=== PATIENT | female | born 2000 | race Caucasian/White ===

== ENCOUNTER 2021-08-07 21:43 | Outpatient (CLI) | payer BC, OTHER | END 2021-08-07 22:45 | disposition home or self-care (01) | LOC: GENOP 21:43 | DX: O99.891 Other specified diseases and conditions complicating pregnancy (principal); R10.9 Unspecified abdominal pain; O99.612 Diseases of the digestive system complicating pregnancy, second trimester; K21.9 Gastro-esophageal reflux disease without esophagitis; Z3A.26 26 weeks gestation of pregnancy | CPT/HCPCS: 81001; G0463 ==

== ENCOUNTER 2021-10-10 20:43 | Outpatient (CLI) | payer BC, OTHER | END 2021-10-10 23:41 | disposition home or self-care (01) | LOC: GENOP 20:43 | DX: O99.891 Other specified diseases and conditions complicating pregnancy (principal); R52 Pain, unspecified; Z3A.35 35 weeks gestation of pregnancy | CPT/HCPCS: 81001; 96360 ==

== ENCOUNTER 2021-10-11 11:50 | Outpatient (CLI) | payer BC, OTHER | END 2021-10-11 12:29 | disposition home or self-care (01) | LOC: GENOP 11:50 | DX: O47.03 False labor before 37 completed weeks of gestation, third trimester (principal); Z3A.36 36 weeks gestation of pregnancy | CPT/HCPCS: 81001; G0463 ==

== ENCOUNTER 2021-10-22 02:37 | Inpatient (IN) | payer BC, OTHER ==
[~2021-10-22] VITALS: Ht 149.9 cm; Wt 86.2 kg
[2021-10-22] MEDS ORDERED: PRILOSEC OTC20 MG PO (03:48)
[2021-10-22] MEDS ORDERED: PRENATAL VITAM1 EAC3 PO (03:49)
[2021-10-22 05:07] LABS: HEMOGLOBIN 11.7 gm/dl (12.3-15.3); RED BLOOD COUNT 3.72 M/UL (4.00-5.10); WHITE BLOOD COUNT 9.3 K/UL (4.5-11.0)
[2021-10-22] MEDS ORDERED: COLACE100 MG PO (19:46)
[2021-10-22] MEDS ORDERED: IBUPROFEN600 MG PO (19:46)
[2021-10-23 06:48] LABS: HEMOGLOBIN 11.1 gm/dl (12.3-15.3)
[2021-10-24] MEDS ORDERED: HYDROCODON-ACE1 EAC4 PO (09:30)
[2021-10-24] MEDS ORDERED: IBUPROFEN800 MG PO (09:30)
[2021-10-24] MEDS ORDERED: COLACE 100MG C100 MG PO (09:30)
== END 2021-10-24 16:37 | disposition home or self-care (01) | DRG 807 ==
LOC: GENOP 02:37 → OB 03:47
PROVIDERS: Obstetrics & Gynecology; ADMIT Obstetrics & Gynecology
PROC: 10E0XZZ Delivery of Products of Conception, External Approach (ICD-10-PCS; principal; 2021-10-22)
PROC: 0KQM0ZZ Repair Perineum Muscle, Open Approach (ICD-10-PCS; 2021-10-22)
PROC: 3E033VJ Introduction of Other Hormone into Peripheral Vein, Percutaneous Approach (ICD-10-PCS; 2021-10-22)
PROC: 4A1H7CZ Monitoring of Products of Conception, Cardiac Rate, Via Natural or Artificial Opening (ICD-10-PCS; 2021-10-22)
PROC: 10H073Z Insertion of Monitoring Electrode into Products of Conception, Via Natural or Artificial Opening (ICD-10-PCS; 2021-10-22)
PROC: 0UH97HZ Insertion of Contraceptive Device into Uterus, Via Natural or Artificial Opening (ICD-10-PCS; 2021-10-22)
PROC: 3E0234Z Introduction of Serum, Toxoid and Vaccine into Muscle, Percutaneous Approach (ICD-10-PCS; 2021-10-22)
DX: O36.63X0 Maternal care for excessive fetal growth, third trimester, not applicable or unspecified (principal); Z37.0 Single live birth; O42.02 Full-term premature rupture of membranes, onset of labor within 24 hours of rupture; Z3A.37 37 weeks gestation of pregnancy; Z83.3 Family history of diabetes mellitus; Z82.49 Family history of ischemic heart disease and other diseases of the circulatory system; Z80.3 Family history of malignant neoplasm of breast; O70.1 Second degree perineal laceration during delivery; E74.31 Sucrase-isomaltase deficiency; Z23 Encounter for immunization; O99.62 Diseases of the digestive system complicating childbirth; K21.9 Gastro-esophageal reflux disease without esophagitis
CPT/HCPCS: 36415; 84112; 85014; 85018; 85025; 85461; 86850; 86900; 86901; 90715; J2590; J2790